=== PATIENT | female | born 1990 | race African-American/Black ===

== ENCOUNTER 2017-06-05 14:01 | Emergency (ER) | payer MEDICAID, OTHER ==
[~2017-06-05] VITALS: Ht 160 cm; Wt 109.0 kg
[2017-06-05] MEDS ORDERED: SODIUM CHLORIDE 0.9% 1,000 ML IV ONE (14:39)
[2017-06-05] MEDS ORDERED: KETOROLAC 30MG/ML VIAL IV STA (14:39)
[2017-06-05 15:05] LABS: BASOPHILS % 0.7 % (0.0-2.0); EOSINOPHILS % 1.3 % (0.0-5.0); HEMATOCRIT. 35.4 % (36.0-48.0); HEMOGLOBIN. 12.1 g/dL (12.0-16.0); LYMPHOCYTES % 28.2 % (20.0-50.0); MEAN CORPUSCULAR HEMOGLOBIN 32.6 pg (28.0-32.0); MEAN CORPUSCULAR VOLUME 95.4 fL (81.0-99.0); MEAN PLATELET VOLUME 7.7 fl (7.4-10.4); MONOCYTES % 8.9 % (2.0-8.0); NEUTROPHILS % 60.9 % (40.0-76.0); PLATELET 315 x1000/uL (130-400); RED BLOOD CELL COUNT 3.71 mill/uL (4.2-5.4); RED CELL DISTRIBUTION WIDTH 13.9 % (11.6-14.6)
[2017-06-05 15:09] LABS: CARBON DIOXIDE 30 mEq/L (21-32); CHLORIDE 105 mEq/L (98-107); INR 1.1; PARTIAL THROMBOPLASTIN TIME 26.1 sec (23.4-31.0); PROTHROMBIN TIME 11.8 sec (9.4-11.6)
[2017-06-05 15:14] LABS: HCG SCREEN NEGATIVE
[2017-06-05 15:16] LABS: TROPONIN I < 0.02 ng/mL (0.00-0.04)
[2017-06-05 17:25] VITALS: BP 142/64
== END 2017-06-05 17:43 | disposition home or self-care (01) ==
LOC: ER 14:01
DX: R07.9 Chest pain, unspecified (principal); R51 Headache; E66.9 Obesity, unspecified
CPT/HCPCS: 36415; 71010; 80053; 83690; 83880; 84484; 84703; 85025; 85610; 85730; 93005; 96361; 96374; 99285; J1885; J7030